=== PATIENT | female | born 1970 | race Caucasian/White ===

== ENCOUNTER → 2017-02-16 09:12 | Outpatient (CLI) | payer MEDICAID ==
[~2017-02-16 09:12] MED LIST: ALBUTEROL2.5 MG/0.5; FLEXERIL10 MG PO; HYDROXYZINE HCL50 MG PO; SPIRIVA18 MCG; ULTRAM50 MG PO; VENTOLIN HFA18 GM INH; WELLBUTRIN SR150 MG PO; XANAX0.5 MG PO
== END | disposition home or self-care (01) ==
LOC: D.CT 09:12
DX: G43.919 Migraine, unspecified, intractable, without status migrainosus (principal)

== ENCOUNTER 2017-07-09 09:02 | Outpatient (CLI) | payer MEDICAID ==
[~2017-07-09] VITALS: Ht 175.3 cm; Wt 100.0 kg
[2017-07-09 10:23] VITALS: BP 142/93; Ht 175.3 cm; Wt 100.0 kg
--- NOTE | 2017-07-09 10:58 | NUR ---
1055 1ST UNIT PLATELETS CHECKED BY 2 R,NS AND EXPLAINED S/S OF BLOOD TRANSFUSION REACTION. REPORT TO ALEXANDRO VALDEZ R.N.
--- NOTE | 2017-07-09 11:00 | NUR ---
1030 ASSESSMENT COMPLETED. EXPLAINED S/S OF BLOOD REACTIONS AND TOLD TO KEEP BLOOD BAND ON X 72 HOURS AND REVIEWED S/S OF BLOOD TRANSFUSION REACTIONS. TRAY ORDERED.
--- NOTE | 2017-07-09 11:13 | NUR ---
1105 PLATELETS 1ST UNIT COMPLETED NO S/S OF BLOOD REACTION NOTED.
--- NOTE | 2017-07-09 11:13 | NUR ---
1110 2ND UNIT PLATELETS STARTED TO LEFT HAND WRIST IV NO REDNESS OR SWELLING.
--- NOTE | 2017-07-09 11:25 | NUR ---
2ND UNIT PLATELETS COMPLETED. LINE FLUSHED WITH NS.
--- NOTE | 2017-07-09 12:25 | NUR ---
NO SIGNS OF REACTION. IV REMOVED INTACT. DISCHARGE INSTRUCTIONS GIVEN, VOICED UNDERSTANDING.
== END 2017-07-09 12:25 | disposition home or self-care (01) ==
LOC: D.OPS 09:02
DX: D69.6 Thrombocytopenia, unspecified (principal)

== ENCOUNTER 2018-03-09 09:20 | Outpatient (CLI) | payer MEDICAID ==
[~2018-03-09] VITALS: Ht 175.3 cm; Wt 100.0 kg
[2018-03-09 12:42] VITALS: BP 126/87; Ht 175.3 cm; Wt 100.0 kg
== END 2018-03-09 13:15 | disposition home or self-care (01) ==
LOC: D.OPS 09:20
DX: D69.6 Thrombocytopenia, unspecified (principal); Z01.812 Encounter for preprocedural laboratory examination

== ENCOUNTER → 2019-02-06 10:33 | Outpatient (CLI) | payer MEDICAID ==
[2018-03-09 12:42] VITALS: BMI 32.5
== END | disposition home or self-care (01) ==
LOC: D.RAD 10:33
DX: M25.512 Pain in left shoulder (principal)

== ENCOUNTER → 2019-08-29 10:53 | Outpatient (CLI) | payer MEDICAID ==
[2018-03-09 12:42] VITALS: BMI 32.5
[2019-08-29 11:35] LABS: BASOPHILS 0.6 % (0-2); EOSINOPHILS 4.6 % (0-7); HEMATOCRIT 42.8 % (36.0-48.0); HEMOGLOBIN 14.3 g/dL (12-16); IMMATURE GRANULOCYTES 0.3 % (0-5); LYMPHOCYTES 27.1 % (15-50); MCH 30.2 pg (26.0-34.0); MCHC 33.4 g/dL (31.0-37.0); MCV 90.3 fL (80.0-100.0); MEAN PLATELET VOLUME 12.2 fL (7.4-10.4); MONOCYTES 7.8 % (2-11); NEUTROPHILS 59.6 % (40-80); RBC 4.74 10x6/uL (4.00-5.40)
[2019-08-29 12:14] LABS: PLATELET COUNT 37 10x3/uL (130-400)
[2019-08-29 13:42] LABS: PLATELET ESTIMATE DECREASED
[2019-08-29 13:43] LABS: ROULEAUX OCC
== END | disposition home or self-care (01) ==
LOC: D.LABREF 10:53
PROVIDERS: ATTEND Legal Medicine
DX: D64.3 Other sideroblastic anemias (principal)

== ENCOUNTER → 2019-12-26 20:42 | Outpatient (CLI) | payer MEDICAID ==
[2018-03-09 12:42] VITALS: BMI 32.5
[2019-12-26 21:18] LABS: HEMATOCRIT 44.1 % (36.0-48.0); HEMOGLOBIN 14.1 g/dL (12-16); MCH 29.7 pg (26.0-34.0); RBC 4.74 10x6/uL (4.00-5.40); RDW 14.3 % (11.5-14.5); WBC 10.7 10x3/uL (4.8-10.8)
[2019-12-26 21:29] LABS: PLATELET COUNT 41 10x3/uL (130-400)
[2019-12-26 22:49] LABS: PLATELET ESTIMATE DECREASED
[2019-12-27 10:53] LABS: EOSINOPHILS 2 % (0-7); LYMPHOCYTES 31 % (15-50); NEUTROPHILS 67 % (40-80)
== END | disposition home or self-care (01) ==
LOC: D.LABREF 20:42
PROVIDERS: ATTEND Legal Medicine
DX: D69.3 Immune thrombocytopenic purpura (principal)

== ENCOUNTER → 2020-01-09 18:57 | Outpatient (CLI) | payer MEDICAID ==
[2018-03-09 12:42] VITALS: BMI 32.5
[2020-01-09 19:31] LABS: HEMATOCRIT 44.4 % (36.0-48.0); HEMOGLOBIN 14.2 g/dL (12-16); MCV 93.7 fL (80.0-100.0); MEAN PLATELET VOLUME 11.8 fL (7.4-10.4); RBC 4.74 10x6/uL (4.00-5.40); RDW 14.6 % (11.5-14.5); WBC 10.4 10x3/uL (4.8-10.8)
[2020-01-09 19:37] LABS: PLATELET COUNT 66 10x3/uL (130-400)
[2020-01-09 20:50] LABS: EOSINOPHILS 4 % (0-7); LYMPHOCYTES 34 % (15-50); MONOCYTES 2 % (2-11); NEUTROPHILS 60 % (40-80); PLATELET ESTIMATE DECREASED
== END | disposition home or self-care (01) ==
LOC: D.LABREF 18:57
PROVIDERS: ATTEND Legal Medicine
DX: D69.3 Immune thrombocytopenic purpura (principal)

== ENCOUNTER → 2020-01-11 10:10 | Outpatient (CLI) | payer MEDICAID ==
[2018-03-09 12:42] VITALS: BMI 32.5
[2020-01-11 15:36] LABS: % SATURATION 11 % (15-55); IRON 44 ug/dl (35-150); TOTAL IRON BIND CAPACITY 382 ug/dl (260-445); UNSAT IRON BIND CAPACITY 338 ug/dl (150-375)
[2020-01-11 16:02] LABS: ALBUMIN 3.8 g/dL (3.4-5.0); ALKALINE PHOSPHATASE 88 U/L (30-120); ALT (SGPT) 12 U/L (10-68); BILIRUBIN - TOTAL 0.22 mg/dL (0.2-1.3); CALC OSMOLALITY 279 mosm/kg (275-300); CALCIUM 8.7 mg/dL (8.5-10.1); CHLORIDE - SERUM 104 mmol/L (98-107); CHOL - HDL RATIO 2.8 ratio (2.3-4.1); CHOLESTEROL, TOTAL 180 mg/dL (0-200); CREATININE - SERUM 0.8 mg/dL (0.6-1.3); GLUCOSE 93 mg/dL (74-106); HDL CHOLESTEROL 64 mg/dL (32-96); LDL CHOLESTEROL 93 mg/dL (0-100); LDL-HDL RATIO 1.5 ratio (1.5-3.5); POTASSIUM - SERUM 4.6 mmol/L (3.5-5.1); PROTEIN - SERUM 6.7 g/dL (6.4-8.2); SODIUM 141 mmol/L (136-145); T4 THYROXIN - FREE 1.41 ng/dL (0.76-1.46); THYROID STIMULATING HORMONE 0.21 uIU/mL (0.36-3.74); TRIGLYCERIDE 116 mg/dL (30-200); UREA NITROGEN 9 mg/dL (7-18); eGFR NON AFRICAN AMERICAN 80 mL/min (90-120)
== END | disposition home or self-care (01) ==
LOC: D.LABREF 10:10
PROVIDERS: ATTEND Legal Medicine
DX: E03.8 Other specified hypothyroidism (principal); D50.0 Iron deficiency anemia secondary to blood loss (chronic); E55.9 Vitamin D deficiency, unspecified

== ENCOUNTER → 2020-11-20 11:13 | Outpatient (CLI) | payer MEDICAID ==
[2018-03-09 12:42] VITALS: BMI 32.5
== END | disposition home or self-care (01) ==
LOC: D.RAD 11:13
PROVIDERS: ATTEND Legal Medicine
DX: M25.522 Pain in left elbow (principal)

== ENCOUNTER → 2020-12-18 09:55 | Outpatient (CLI) | payer MEDICAID ==
[2018-03-09 12:42] VITALS: BMI 32.5
== END | disposition home or self-care (01) ==
LOC: D.RAD 09:55
PROVIDERS: ATTEND Legal Medicine
DX: R07.1 Chest pain on breathing (principal)